=== PATIENT | male | born 1995 | race African-American/Black ===

== ENCOUNTER 2020-11-02 21:38 | Emergency (ER) | payer MEDICAID ==
[~2020-11-02] VITALS: Ht 177.8 cm; Wt 73.0 kg
[2020-11-02 22:02] VITALS: BP 138/70
[2020-11-03] MEDS ORDERED: ACETAMINOPHEN 325MG TABLET PO ONE
[2020-11-03] MEDS ORDERED: IBUPROFEN 600MG TABLET PO ONE
[2020-11-03] MEDS ORDERED: NAPR-1176 MT (00:26)
[2020-11-03] MEDS ORDERED: ACET-2708 MT (00:26)
== END 2020-11-03 01:24 | disposition home or self-care (01) ==
LOC: ER 21:38
DX: S80.211A Abrasion, right knee, initial encounter (principal); V43.52XA Car driver injured in collision with other type car in traffic accident, initial encounter; Y93.89 Activity, other specified; Y92.488 Other paved roadways as the place of occurrence of the external cause
CPT/HCPCS: 99283